=== PATIENT | male | born 1975 | race Caucasian/White ===

== ENCOUNTER 2016-09-06 00:38 | Observation (INO) ==
[2016-09-06] MEDS ORDERED: Naloxone 0.4 MG/ML INJ IVP PRN (03:37)
--- NOTE | 2016-09-06 03:37 | Internal Med History&Physical ---
Date of Encounter: 09/06/16 Time of Encounter: 03:37 Assessment and Plan (1) ACS (acute coronary syndrome) Current visit: Yes Status: Acute Suspect unstable angina. secured entrance monitor. Trend troponins. Start aspirin and Lovenox 1 mg/kg. Cardiology consultation and echocardiogram. Will check lipid panel and keep him NPO for possible cardiac cath. (2) Syncope Current visit: Yes Status: Acute Suspect cardiac arrhythmia as possible cause. cardiac monitoring. echocardiogram and cardiology consult. check magnesium Qualifiers: Syncope type: unspecified Qualified Code(s): R55 - Syncope and collapse (3) Nicotine dependence Current visit: Yes Status: Chronic Nicotine patch. Pt is counseled for smoking cessation and informed smoking as a risk factor for ACS Qualifiers: Nicotine product type: cigarettes Substance use status: unspecified nicotine-induced disorder Qualified Code(s): F17.219 - Nicotine dependence, cigarettes, with unspecified nicotine-induced disorders (4) Chest pain Current visit: Yes Status: Acute Suspect ACS. Treatment as listed above Qualifiers: Chest pain type: chest pain due to myocardial ischemia Ischemic chest pain type: unstable angina pectoris Qualified Code(s): I20.0 - Unstable angina Internal Medicine - H&P: HPI Chief complaint: Chest pain Admitted From: Emergency Dept Plans for Post Hospital Care: Home History of present illness: Mr. Fierro is a 41 year old male with no significant past medical history presents with Chest Pain. He apparently had an intact his son's graduation yesterday and at about 10 PM, while he was sitting in the couch, he had severe midsternal chest pain, which was 8/10 in severity and was radiating to his left upper extremity which was also numb. He apparently cut his hand on his chest and he does not remember what happened. He apparently was unresponsive and his sons picked him and drove to the ER at [facility]. No once checked his pulse at that time. He woke up close to reaching the ER. Chest pain at that time, which was relieved by nitroglycerin in the emergency department. He reported some shortness of breath, but denies diaphoresis, palpitations, nausea , vomiting, abdominal pain, dysuria, hematuria, bowel problems. He was given aspirin in the ER. ER provider was apparently concerned about less thatn [address] elevation in the inferior leads and discussed with alterations tailor Dr Acevedo, who did not think it was STEMI and advised admission to the hospitalist service at [facility]. Patient does not report further chest pain. Risk factors: He reports intermittent chest pain for about 2 years, but they were not this severe and only lasted very short periods, unrelated to exertion and no radiation to the arms. 1.5 packs/day smoking; atleast 35 pack year h/o smoking. Family h/o MIs - His paternal grand father had heart problems in early 50s. His cousin had CABG under the age of 50 Past Med Surg Social Fam HX - Past Medical History Medical history: no medical history Psychiatric history: no psych history - Past Surgical History Surgical History: herniorrhaphy - Social History Smoking Status: Current every day smoker Packs per day: 1 1/2 Smokeless Tobacco Status: No Alcohol use: none Drug use: none - Family History Paternal Grandfather Living Status: Age at : 53 Hx Family Cardiac Disorders: Yes ([place]) Father Hx Family Cardiac Disorders: Yes (cardiac stents) Maternal Grandfather Hx Family Cancer: Yes (lung) Internal Medicine - H&P: Meds No Known Home Drugs 09/05/16 [History] Allergies No Known Allergies Allergy (Verified 09/05/16 23:02) All Systems PM: A 10-system review of systems was performed and is negative for pertinent findings except as documented above in the HPI. - Other Additional findings: General: Not in acute distress at the time of my evaluation HEENT: Oral mucosa is moist. No conjunctival palor or scleral icterus Neck: No obvious neck swellings Lungs: B/L basal crackles present Cardiac: Regular rate and rhythm. No significant murmurs Abdomen: Soft, non tender. Bowel sounds present Genitourinary: No freire catheter Neurological: Alert and oriented. No gross localizing deficits Psych: Not aggressive or agitated Extremities: no significant leg edema Skin: No generalized rash Internal Med - H&P Results - EKG Data -: EKG Interpreted by Myself EKG shows normal: sinus rhythm
[2016-09-06] MEDS ORDERED: Nitroglycerin 0.4 MG TAB.SUBL SL PRN (03:39)
[2016-09-06 03:56] LABS: BUN/Creatinine Ratio 12 (6-26); Blood Urea Nitrogen 13 mg/dL (8-26); Calcium 8.4 mg/dL (8.6-10.8); Carbon Dioxide 22 mEq/L (19-29); Chloride 110 mEq/L (98-109); Chol/HDL Ratio 4.6 (0-4.9); Cholesterol 174 mg/dL (< 200); Glucose 93 mg/dL (70-99); HDL Cholesterol 38 mg/dL (40-59); LDL Cholesterol,Calculated 126 mg/dL (0-99); Magnesium 1.9 mg/dL (1.6-2.6); Osmolality,Calculated 292 (280-300); Potassium 4.1 mEq/L (3.5-4.5); Sodium 141 mEq/L (136-145); Triglycerides 51 mg/dL (< 150); eGFR For African Americans > 60 (> 60); eGFR For Non-African Americans > 60 (> 60)
[2016-09-06] MEDS: Nicotine 21 MG PATCH.TD24 TD SCH ×2 (04:38→11:39)
[2016-09-06] MEDS: *HR* Enoxaparin 100 MG/ML SYRINGE SQ SCH ×2 (04:39→16:58)
[2016-09-06] MEDS: Aspirin 325 MG TABLET PO SCH (08:00)
--- NOTE | 2016-09-06 08:35 | Cardiology Consult Note ---
Date of Encounter: 09/06/16 Time of Encounter: 08:22 Assessment and Plan (1) Chest pain Current Visit: Yes Status: Acute Complains of sudden onset of chest pain radiating to his left arm. Continues to have intermittent left arm pain relieved with nitroglycerin. Troponins have been negative 3. EKG shows normal sinus rhythm with no acute ST changes. Patient already had nitroglycerin this morning and unable to proceed with stress test. TTE currently pending. Further recommendation to follow. Cardiac risk factors include heavy tobacco use and family history in first- degree relative. Grandfather of [place] age 53 and father diagnosed with CAD at age 41. Qualifiers: Chest pain type: chest pain due to myocardial ischemia Ischemic chest pain type: unstable angina pectoris Qualified Code(s): I20.0 - Unstable angina (2) Syncope Current Visit: Yes Status: Acute Patient unresponsive for up to 5 minutes per family. Unclear etiology at this time. Cardiac workup this far has been negative. Troponins are negative 3. EKG with no concerning findings. 24 hour telemetry review shows normal sinus rhythm with average heart rate 67 bpm. No VT, no pauses, no heart blocks seen. TTE is pending. Further recs to follow. Qualifiers: Syncope type: unspecified Qualified Code(s): R55 - Syncope and collapse (3) Nicotine dependence Current Visit: Yes Status: Chronic Nicotine patch. Pt is counseled for smoking cessation and informed smoking as a risk factor for ACS Qualifiers: Nicotine product type: cigarettes Substance use status: unspecified nicotine-induced disorder Qualified Code(s): F17.219 - Nicotine dependence, cigarettes, with unspecified nicotine-induced disorders Discussion w patient/family: The assessment and plan as outlined above was discussed with the patient and/or family members who expressed understanding and agreement. All questions were answered. Thank you for involving us in the care of your patient. Please call with any questions. History of Present Illness Consult date: 09/06/16 Requesting physician: Jonh Rodriges Consult reason: Chest pain, syncope Chief complaint: Chest pain History of present illness: Mr. Fierro is a 41 year old male with no previous medical history presents with syncopal episode that was preceded with chest pain. Patient also complain of chest pain while in the emergency room. He describes his chest pain as a sudden midsternal chest pain going down his left arm. He continues to have recurrent left arm pain from his shoulder to his wrist that is relieved with sublingual nitroglycerin. He complains of nausea after receiving nitroglycerin. He does not remember passing out. His states that he was unarousable for about 5 minutes. Symptoms occurred while he was lying on the couch and continued while he was being transferred by squad. His son was shaking him and slapping him in the face with no response. He was breathing but was making a raspy sound. Troponins have been negative 3 and EKG shows NSR with no acute ST changes. Cardiology consult for further workup. He denies previous history of CAD. He is currently chest pain-free. Past Med Surg Social Fam HX - Past Medical History Medical history: no medical history Psychiatric history: no psych history - Past Surgical History Surgical History: herniorrhaphy - Social History Smoking Status: Current every day smoker Packs per day: 1 1/2 Smokeless Tobacco Status: No Alcohol use: none Drug use: none - Family History Paternal Grandfather Living Status: Age at : 53 Hx Family Cardiac Disorders: Yes ([place]) Father Hx Family Cardiac Disorders: Yes (cardiac stents) Maternal Grandfather Hx Family Cancer: Yes (lung) Medications and Allergies No Known Home Drugs 09/05/16 [History] Allergies No Known Allergies Allergy (Verified 09/05/16 23:02) All Systems Review: A 10-system review of systems was performed and is negative for pertinent findings except as documented above in the HPI. Physical Examination Vital Signs, Last 4 Hours Temp Pulse Resp BP Pulse Ox 09/06/16 07:10 97.5 F L 64 15 105/63 94 General: Conversant, No Apparent Distress HEENT: Atraumatic, Normocephaly, Mucus Membranes Moist Neck: No JVD, Normal carotid pulses Cardiac: Reg Rate and Rhythm, Normal S1 and S2, No Murmur Lungs: Normal Breath Sounds, No Wheeze, Rales, Rhonchi Neuro: Alert and responsive, No focal deficits noted Abdomen: Soft, Non-Tender Skin: No rashes noted on visualized skin Musculoskeletal: No Chest Wall Tenderness, Other (Left shoulder mildly tender to palpation.) Extremities: No Clubbing, No Cyanosis, No Edema, Normal Pulses Results 09/06/16 03:01 Lab Results 09/06/16 09/06/16 03:01 03:01 Sodium 141 Potassium 4.1 Chloride 110 H Carbon Dioxide 22 BUN 13 Creatinine 1.05 Glucose 93 Calcium 8.4 L Magnesium 1.9 Troponin I 0.00 - Imaging and Cardiology Echo: pending - EKG Interpretation EKG results cardiology: personally reviewed (Normal sinus rhythm. There is no acute ST changes. HR 88 bpm. QTC is 410.) Consult Discharge Plan - Plan Referrals: Ge Pedro DO [Primary Care Provider] -
--- NOTE | 2016-09-06 11:09 | ECHO - Doppler Report ---
Echocardiogram Name: Marcello Fierro Date of Study: 09/06/2016 Date: 1975 Ht: 71.0 in Medical Record#: [id number] Age: 41 Wt: 208.0 lb Gender: Male BSA: 2.14 Order #: [id number] Location: [facility] Room #: 3B45 Reading Physician: Emigdio Silveira MD, [facility] Technical Services Rep: Zuleika Marcelino Ordering Physician: Ross Rodriges MD Primary Physician: Ge Pedro DO Indications: Syncope Impressions: LVEF 55-60%. No significant valvular dysfunction. Normal left ventricular diastolic function. Left Ventricular Wall Motion: Rest Echo Findings All wall segments showed normal motion. Findings: Study Quality * Technically adequate exam. Right Ventricle * Normal right ventricular structure and function. Right Atrium * Normal right atrial size. Aortic Valve * Trileaflet aortic valve with normal function. Mitral Valve * Normal mitral valve structure and function. Interatrial Septum * No evidence of PFO by color Doppler. Aorta * Normally sized aortic root. Pericardium * The pericardium appears normal. ECG Findings * Normal sinus rhythm. Left Ventricle * Normal left ventricular diastolic function. * LVEF 55-60%. Left Atrium * Normal left atrial size. Tricuspid Valve * No tricuspid stenosis. * No tricuspid regurgitation. * Unable to estimate RVSP due to lack of TR jet. Pulmonic Valve * No pulmonic stenosis. * Mild pulmonic regurgitation. IVC * Normal IVC dimensions and inspiratory collapse. History History of Smoking Years 30 Packs 1.5 Family History of CAD Measurements: BP: 111/ 61 2D Normal Values RVIDd: 2.90 cm <2.7 cm IVSd: 1.10 cm 0.6 - 1.0 cm LVIDd: 5.50 cm 3.7 - 5.6 cm LVPWd: 1.10 cm 0.6 - 1.1 cm LVIDs: 3.60 cm 1.5 - 3.6 cm AO: 3.65 cm < 4.0 cm LA: 4.00 cm 2.0 - 4.0cm %FS: 34.50 cm >25 % LVOT Diam: 2.00 cm LA volume: 58 Mitral Valve Peak E:.83 m/sec Peak A:.59 m/sec E/A Ratio:1.4 Peak E' Lat Jose Juan:13.5 cm/s Peak E' Med Jose Juan:8.87 cm/s E/E' Lat Ratio:6.2 E/E' Med Ratio:9.4 Updated by Emigdio Silveira MD, [facility] on 09/06/2016 10:58:19 AM electronically signed on 09/06/2016 11:03:28 AM with status of Final Wall Motion Molina: 1=Normal, 2=Hypokinesis, 3=Akinesis, 4=Dyskinesis, 5=Aneurysmal, 6=Hyperkinetic, X=Not Visualized (Blank)=Missing
[2016-09-06] MEDS ORDERED: Acetaminophen 325 MG TABLET PO PRN (16:32)
--- NOTE | 2016-09-06 18:07 | Event Note ---
Date of Encounter: 09/06/16 Time of Encounter: 17:00 Patient presented to the hospital for chest pain and an episode of syncope and collapse. On exam he is in no acute distress, awake alert oriented 3. Heart exam reveals regular S1-S2 with no murmurs. Plan: Continue with telemetry. Stress test in the morning. I appreciate cardiology recommendations.
[2016-09-07 05:21] LABS: Basophils # 0.1 K/mcL (0.0-0.2); Basophils % 0.8 %; Eosinophils # 0.3 K/mcL (0.0-0.6); Eosinophils % 3.9 %; Hematocrit 44.4 % (37.5-50.1); Immature Granulocytes % 0.6 % (0-4); Lymphocytes # 2.8 K/mcL (0.6-4.6); Lymphocytes % 38.4 %; Mean Corpuscular HGB Conc 33.8 g/dL (31.6-35.5); Mean Corpuscular Hemoglobin 30.4 pg (28.0-33.3); Mean Corpuscular Volume 89.9 fL (83.0-100.0); Mean Platelet Volume 11.7 fL (9.4-12.4); Monocytes # 0.5 K/mcL (0.0-1.3); Monocytes % 7.4 %; Neutrophils # 3.6 K/mcL (1.6-8.9); Platelet Count 211 K/mcL (140-400); Red Blood Count 4.94 M/mcL (4.19-5.50); Red Cell Distribution Width 12.3 % (11.5-14.5); Segmented Neutrophils % 48.9 %
[2016-09-07 05:35] LABS: BUN/Creatinine Ratio 11 (6-26); Blood Urea Nitrogen 13 mg/dL (8-26); Calcium 8.9 mg/dL (8.6-10.8); Carbon Dioxide 28 mEq/L (19-29); Chloride 109 mEq/L (98-109); Glucose 112 mg/dL (70-99); Magnesium 2.1 mg/dL (1.6-2.6); Osmolality,Calculated 299 (280-300); Potassium 4.2 mEq/L (3.5-4.5); Sodium 144 mEq/L (136-145); eGFR For African Americans > 60 (> 60); eGFR For Non-African Americans > 60 (> 60)
[2016-09-07] MEDS: *HR* Enoxaparin 100 MG/ML SYRINGE SQ SCH (06:17)
[2016-09-07] MEDS: Aspirin 325 MG TABLET PO SCH (10:19)
[2016-09-07] MEDS: Nicotine 21 MG PATCH.TD24 TD SCH (10:19)
--- NOTE | 2016-09-07 10:29 | Cardiology Progress Note ---
Date of Encounter: 09/07/16 Time of Encounter: 10:27 Assessment and Plan (1) Chest pain Current Visit: Yes Status: Inactive Troponins have been negative 3. EKG shows normal sinus rhythm with no acute ST changes. TTE shows EF 50-55%. No significant valvular disease. Stress test is pending. Cardiac risk factors include heavy tobacco use and family history in first- degree relative. Grandfather of [place] age 53 and father diagnosed with CAD at age 41. Suspect a stress test is negative patient could be discharged today with close outpatient follow-up. Please call with questions. Qualifiers: Chest pain type: chest pain due to myocardial ischemia Ischemic chest pain type: unstable angina pectoris Qualified Code(s): I20.0 - Unstable angina (2) Syncope Current Visit: Yes Status: Inactive Patient unresponsive for up to 5 minutes per family. Unclear etiology at this time. Cardiac workup this far has been negative. Troponins are negative 3. EKG with no concerning findings. 24 hour telemetry review shows normal sinus rhythm with average heart rate 75 bpm, NSR. No VT, no pauses, no heart blocks seen. Shows normal EF and no significant valvular disease. Possible vasovagal episode. Reported sudden onset of pain prior to event. Qualifiers: Syncope type: unspecified Qualified Code(s): R55 - Syncope and collapse (3) Nicotine dependence Current Visit: Yes Status: Chronic Nicotine patch. Pt is counseled for smoking cessation and informed smoking as a risk factor for ACS Qualifiers: Nicotine product type: cigarettes Substance use status: unspecified nicotine-induced disorder Qualified Code(s): F17.219 - Nicotine dependence, cigarettes, with unspecified nicotine-induced disorders Discussion w patient/family: The assessment and plan as outlined above was discussed with the patient and/or family members who expressed understanding and agreement. All questions were answered. Thank you for involving us in the care of your patient. Please call with any questions. Subjective Principal diagnosis: Chest pain Interval history: Reports chest pain and left arm pain resolved. No recurrent syncope. Seen in stress lab. Objective Vital Signs, Last 4 Hours Temp Pulse Resp BP Pulse Ox 09/07/16 07:50 93 09/07/16 06:48 97.5 F L 70 16 107/67 93 General: Conversant, No Apparent Distress HEENT: Atraumatic, Normocephaly, Mucus Membranes Moist Neck: No JVD, Normal carotid pulses Cardiac: Reg Rate and Rhythm, Normal S1 and S2, No Murmur Lungs: Normal Breath Sounds, No Wheeze, Rales, Rhonchi Neuro: Alert and responsive, No focal deficits noted Abdomen: Soft, Non-Tender Skin: No rashes noted on visualized skin Musculoskeletal: No Chest Wall Tenderness Extremities: No Clubbing, No Cyanosis, No Edema, Normal Pulses Results 09/07/16 04:06 09/07/16 04:06 Lab Results 09/07/16 09/07/16 04:06 04:06 WBC 7.3 Hgb 15.0 Hct 44.4 Plt Count 211 Sodium 144 Potassium 4.2 Chloride 109 Carbon Dioxide 28 BUN 13 Creatinine 1.18 Glucose 112 H Calcium 8.9 Magnesium 2.1 - Imaging and Cardiology Echo: report reviewed - EKG Interpretation EKG results cardiology: personally reviewed Consult Discharge Plan - Plan Referrals: Ge Pedro DO [Primary Care Provider] -
[2016-09-07 10:43] VITALS: BP 132/88
--- NOTE | 2016-09-07 12:51 | Nuclear Medicine Stress Report ---
Exercise Nuclear Stress Name: Marcello Fierro Date of Study: 09/07/2016 Date: 1975 Ht: 70.0 in Medical Record#: [id number] Age: 41 Wt: 198.0 lb Gender: Male Order #: [id number] Location: [facility] IP Room: [facility] Supervising Provider: Elvis Jaramillo CNP Reading Physician: Emigdio Silveira MD, [facility] Ordering Physician: Kareem Gallegos MD Primary Care Physician: Ge Pedro DO Stress Technologist: Juan Jose Brooks ELECTRICITY TRADER, [facility] Sales Performance Manager: [place] Indications: Chest Pain Impression: Perfusion imaging was negative for ischemia or infarct. Pharmacologic ECG was non diagnostic for ischemia. Patient had no chest pain with stress. No arrhythmias noted with stress. Gated EF = 70%. There is evidence of TID. History: History of Smoking Stress Test Summary: Stress Test Type: Treadmill Protocol: Emigdio Baseline Information: Initial Heart Rate: 67 Blood Pressure: 118/80 Stress Information: Stress Time: 9 min 00 sec Test Terminated Due to (primary): Dyspnea Maximum Blood Pressure: 180/84 Maximum Heart Rate: 151 Percent Maximum Heart Rate Achieved: 86 Double Product: 27,180 METS Reached: 10.1 Nuclear Summary: SPECT myocardial perfusion imaging using Tc99m Sestamibi given intravenously was performed at rest and following cardiac stress testing. The resting images were obtained following initial dose of 11 mCi. Following stress an additional dose of 34.1 mCi was given at peak exercise or 30 seconds post regadenoson infusion. Medication Given: Time Medication Dose Units Route Findings: Stress Note * Resting ECG demonstrated normal sinus rhythm. * No baseline arrhythmias were noted. * Pharmacologic stress ECG is non diagnostic for ischemia due to failure to reach target heartrate. * No arrhythmias were noted during stress. * Patient had no chest pain during stress. Hemodynamic responses * The patient demonstrated a hypertensive blood pressure response. Study Quality * Study quality is average. Gated EF % * Gated EF = 70%. Left Ventricle * The left ventricle is not dilated. NORMALS * Normal wall motion. * Normal segmental perfusion in stress. * Normal Segmental Perfusion in rest. TID * No evidence of transient ischemic dilatation. Updated by Emigdio Silveira MD, [facility] on 09/07/2016 12:44:18 PM electronically signed on 09/07/2016 12:46:19 PM with status of Final
--- NOTE | 2016-09-07 13:53 | Discharge Summary ---
Date of Encounter: 09/07/16 Time of Encounter: 13:46 - Discharge Diagnosis (1) Tobacco abuse disorder Priority: Secondary Status: Acute (2) Musculoskeletal chest pain Priority: Primary Status: Acute - Discharge Medications Home Medications: No Known Home Drugs 09/05/16 [History] Allergies/Adverse Reactions: Allergies No Known Allergies Allergy (Verified 09/05/16 23:02) Procedures/tests Complete & Pending: Procedures Performed prior 72 hours Category Date Time Status NM roxanne perf SPECT multi [NM] Routine Exams 09/06/16 11:30 Taken ECG 12 lead ECG [ECG] Stat Y 09/06/16 02:54 Ordered EV echocardiogram Routine Y 09/06/16 04:01 Completed SP exercise nuclear stress Routine Y 09/07/16 11:28 Completed Date of admission: 09/06/16 02:19 Primary care physician: Ge Pedro Consults: 09/06/16 03:39 Consult to Cardiology [CONS] Routine Comment: Consulting Provider: Cardiology Lilly Reason for Consult: Chest pain / ACS Call Completed: No - Patient Status Disposition: Home, Self-Care Condition: Good Functional capacity at discharge: independent ambulation Overall status at discharge: patient is back to baseline - Discharge Instructions Follow Up With: Ge Pedro DO [Primary Care Provider] - - Diet and Activity Activity: increase activity as tolerated Diet: advance to your usual diet, low salt diet Hospital course: Mr. Fierro is a 41 year old male with no significant past medical history who presented to the hospital with chest pain. He had sudden onset midsternal severe chest pain that was sharp and radiating into his left upper extremity. The pain lasted for 10 minutes and per the family member he appeared to be unresponsive during the episode. He was brought by family members to the emergency department at [facility]. He was transferred to our hospital for further care. He was placed in observation under the care of the medical service. Cardiology was consulted. 3 sets of cardiac enzymes were negative. Telemetry recording revealed no evidence of arrhythmia. EKG showed no acute findings. He had an echocardiogram which showed normal ejection fraction and no valvular dysfunction. He had a stress test done today which found no evidence of ischemia. Cardiology cleared him for discharge home. He had no recurrent chest pain. ACS was ruled out. I have advised smoking cessation and provided counseling. I instructed the patient to follow up with his primary care physician within 1-2 weeks. Verbalizes understanding and agreement with the plan. He is currently medically stable for discharge home. I advised him to return to the hospital if chest pain recurs. - Time Spent with Patient Total time spent providing and/or coordinating discharge services: - Constitutional Vitals: Temp Pulse Resp BP Pulse Ox 98.1 F 73 16 132/88 95 09/07/16 10:42 09/07/16 10:42 09/07/16 10:42 09/07/16 10:42 09/07/16 10:42 General appearance: Present: A&O X 3 - Respiratory Respiratory exam: Present: CTAB. Absent: accessory muscle use, rales, rhonchi, wheezes - Cardiovascular Cardiovascular exam: Present: RRR, +S1, +S2. Absent: diastolic murmur, gallop, rubs, systolic murmur
--- NOTE | 2016-09-08 16:48 | Electrocardiograph Report ---
[address] [address] Test Date: 2016-09-06 Pat Name: Marcello Fierro Department: 113 Room: 3B45 Gender: M Pile Header: CHERI : 1975 Requested By: Jonh Rodriges Order Number: [id number] Reading MD: Myke Lassiter Measurements Intervals [place] Rate: 65 P: 52 FL: 202 QRS: 63 QRSD: 114 T: 52 QT: 409 QTc: 420 Interpretive Statements SINUS RHYTHM MODERATE INTRAVENTRICULAR CONDUCTION DELAY Electronically Signed On 09-08-2016 16:46:30 EDT by Myke Lassiter
== END 2016-09-07 15:07 | disposition home or self-care (01) ==
LOC: 3BNU → SUATTDRO 02:19
PROVIDERS: ADMIT Internal Medicine; ATTEND Internal Medicine